=== PATIENT | female | born 1995 | race Caucasian/White ===

== ENCOUNTER → 2021-09-08 | Day surgery (SDC) | payer OTHER ==
[~2021-09-08] VITALS: Ht 154.9 cm; Wt 52.6 kg
[~2021-09-08] MED LIST: CEPHALEXIN500 M1 PO; HYDROCODON-ACE1 EAC4 PO
== END | disposition home or self-care (01) ==
LOC: OR 11:48
DX: S56.322A Laceration of extensor or abductor muscles, fascia and tendons of left thumb at forearm level, initial encounter (principal); F17.290 Nicotine dependence, other tobacco product, uncomplicated; Z20.822 Contact with and (suspected) exposure to COVID-19; W22.8XXA Striking against or struck by other objects, initial encounter
CPT/HCPCS: 84703; J0690; J1100; J2001; J2250; J2405; J2704; J3010; J3370; J7120; U0002